=== PATIENT | female | born 1945 | race Asian ===

== ENCOUNTER 2025-09-22 09:58 | Outpatient (CLI) | payer MEDICARE | END 2025-09-22 09:59 | disposition home or self-care (01) | LOC: BICCT 09:58 | PROVIDERS: ATTEND Nurse Practitioner Family | DX: Z13.820 Encounter for screening for osteoporosis (principal); N25.1 Nephrogenic diabetes insipidus; K86.2 Cyst of pancreas; M81.0 Age-related osteoporosis without current pathological fracture; R16.0 Hepatomegaly, not elsewhere classified; K86.9 Disease of pancreas, unspecified; N28.89 Other specified disorders of kidney and ureter | CPT/HCPCS: 74176; 77080 ==